=== PATIENT | female | born 1950 | race Caucasian/White ===

== ENCOUNTER 2017-04-18 09:13 | Emergency (ER) | payer MEDICARE, BC ==
--- NOTE | 2017-04-18 09:43 | EDM.PDOC ---
ED HPI GENERAL MEDICAL PROBLEM - General Chief Complaint: Respiratory Problem Stated Complaint: [id number] SOB Time Seen by Provider: 04/18/17 09:43 Source of Information: Reports: Patient, RN, RN Notes Reviewed History Limitations: Reports: No Limitations - History of Present Illness INITIAL COMMENTS - FREE TEXT/NARRATIVE: Patient arrives by POV. Complains of a cough for a week and half. Was seen in the clinic and treated with a ZPAK which she completed and has not improved. Denies fever or chills. Complains of shortness of breath particularly with activity. Cough is dry. Patient feels that there is some wheezing. Location: Reports: Chest Quality: Reports: Ache Severity: Moderate Improves with: Reports: None Worsens with: Reports: None Associated Symptoms: Reports: No Other Symptoms - Related Data Allergies Allergy/AdvReac Type Severity Reaction Status Date / Time levofloxacin [From Levaquin] AdvReac psoriasis Verified 04/18/17 09:41 flare Home Meds: Home Meds Doxycycline [Vibramycin] 1 tab PO BID 04/18/17 [History] Levothyroxine [Synthroid] 1 tab PO DAILY 04/18/17 [History] Simvastatin [Zocor] 1 tab PO BEDTIME 04/18/17 [History] Social & Family History - Family History Family Medical History: Noncontributory ED ROS GENERAL - Review of Systems Review Of Systems: ROS reveals no pertinent complaints other than HPI. ED EXAM, GENERAL - Physical Exam Exam: See Below Exam Limited By: No Limitations General Appearance: Alert, WD/WN, No Apparent Distress Eye Exam: Bilateral Eye: Normal Inspection Ears: Normal External Exam, Normal Canal, Hearing Grossly Normal, Normal TMs Nose: Normal Inspection, Normal Mucosa, No Blood Throat/Mouth: Normal Inspection, Normal Lips, Normal Teeth, Normal Gums, Normal Oropharynx, Normal Voice, No Airway Compromise Head: Atraumatic, Normocephalic Neck: Normal Inspection, Supple, Non-Tender, Full Range of Motion Respiratory/Chest: Decreased Breath Sounds (in bilateral bases. Dry cough with course breath sounds with mimld scattereed wheezes. ) Cardiovascular: Normal Peripheral Pulses, Regular Rate, Rhythm, No Edema, No Gallop, No JVD, No Murmur, No Rub GI/Abdominal: Normal Bowel Sounds, Soft, Non-Tender, No Organomegaly, No Distention, No Abnormal Bruit, No Mass Back Exam: Normal Inspection, Full Range of Motion, NT Extremities: Normal Inspection, Normal Range of Motion, Non-Tender, Normal Capillary Refill, No Pedal Edema Neurological: Alert, Oriented, CN II-XII Intact, Normal Cognition, Normal Gait, Normal Reflexes, No Motor/Sensory Deficits Psychiatric: Normal Affect, Normal Mood Skin Exam: Warm, Dry, Intact, Normal Color, No Rash Course - Vital Signs Last Recorded V/S: Last Vital Signs Temp 36.7 C 04/18/17 11:17 Pulse 80 04/18/17 11:17 Resp 20 04/18/17 11:17 BP 129/73 04/18/17 11:17 Pulse Ox 98 04/18/17 11:17 - Orders/Labs/Meds Orders: Active Orders 24 hr Category Date Time Status Peripheral IV Care [RC] . DIRECTED Care 04/18/17 10:34 Active RT Aerosol Therapy [RC] ASDIRECTED Care 04/18/17 10:34 Active RT Post Treatment Assessment [RC] Click to Edit Care 04/18/17 11:49 Active RT Pre-Treatment Assessment [RC] Click to Edit Care 04/18/17 11:49 Active Chest 2V [CR] Stat Exams 04/18/17 10:34 Taken CULTURE BLOOD [BC] Stat Lab 04/18/17 11:06 Received CULTURE BLOOD [BC] Stat Lab 04/18/17 11:23 Received Sodium Chloride 0.9% [Saline Flush] Med 04/18/17 10:33 Active 10 ml FLUSH ASDIRECTED PRN Blood Culture x2 Reflex Set [OM.PC] Stat Oth 04/18/17 10:33 Ordered Peripheral IV Insertion Adult [OM.PC] Stat Oth 04/18/17 10:33 Ordered Medication Orders Sodium Chloride (Saline Flush) 10 ml FLUSH ASDIRECTED PRN PRN Reason: Keep Vein Open Labs: Laboratory Tests 04/18/17 04/18/17 04/18/17 Range/Units 11:06 11:06 11:06 WBC 9.3 (5.0-10.0) 10^3/uL RBC 5.09 (4.2-5.4) 10^6/uL Hgb 15.7 (12.0-16.0) g/dL Hct 47.3 H (37.0-47.0) % MCV 92.9 (80-100) fL MCH 30.8 (27.0-34.0) pg MCHC 33.2 (33.0-35.0) g/dL Plt Count 262 (150-450) 10^3/uL Neut % (Auto) 72.5 (42.2-75.2) % Lymph % (Auto) 17.2 L (20.5-50.1) % [place] % (Auto) 8.3 H (2-8) % Eos % (Auto) 1.7 (1.0-3.0) % Baso % (Auto) 0.3 (0.0-1.0) % Sodium 144 (135-145) mmol/L Potassium 4.0 (3.6-5.0) mmol/L Chloride 104 (101-111) mmol/L Carbon Dioxide 26.0 (21.0-31.0) mmol/L Anion Gap 18.0 BUN 9 (7-18) mg/dL Creatinine 0.8 (0.6-1.3) mg/dL Est Cr Clr Drug Dosing 55.68 mL/min Estimated GFR (MDRD) > 60 BUN/Creatinine Ratio 11.25 Glucose 111 H (74-105) mg/dL Lactic Acid 2.3 H (0.5-2.2) mmol/L Calcium 9.9 (8.4-10.2) mg/dl Total Bilirubin 0.4 (0.2-1.0) mg/dL AST 27 (10-42) IU/L ALT 23 (10-60) IU/L Alkaline Phosphatase 92 (42-121) IU/L Total Protein 8.1 (6.7-8.2) g/dl Albumin 4.2 (3.2-5.5) g/dl Globulin 3.9 Albumin/Globulin Ratio 1.08 Meds: Medications Generic Name Dose Route Start Last Admin Trade Name Freq PRN Reason Stop Dose Admin Sodium Chloride 10 ml 04/18/17 10:33 Saline Flush FLUSH ASDIRECTED PRN Keep Vein Open Discontinued Medications Generic Name Dose Route Start Last Admin Trade Name Freq PRN Reason Stop Dose Admin Albuterol 6.7 gm 04/18/17 11:49 04/18/17 12:03 Proventil Hfa INH 04/18/17 11:50 2 puff ONETIME ONE Administration Albuterol/Ipratropium 3 ml 04/18/17 10:34 04/18/17 10:39 Duoneb 3.0-0.5 Mg/3 Ml NEB 04/18/17 10:35 3 ml ONETIME ONE Administration Benzonatate 200 mg 04/18/17 11:40 04/18/17 12:03 Tessalon Perles PO 04/18/17 11:41 200 mg ONETIME ONE Administration Methylprednisolone Sodium Succinate 125 mg 04/18/17 11:40 Solu-Medrol IVPUSH 04/18/17 11:41 ONETIME ONE Methylprednisolone Sodium Succinate 125 mg 04/18/17 11:52 04/18/17 12:04 Solu-Medrol IM 04/18/17 11:53 125 mg ONETIME ONE Administration - Radiology Interpretation Free Text/Narrative:: Chest x-ray: COPD. See rad report. Departure - Departure Time of Disposition: 12:18 Disposition: Home, Self-Care 01 Condition: Good Clinical Impression: COPD with acute exacerbation - Discharge Information Instructions: Chronic Obstructive Pulmonary Disease Exacerbation, [id number] Forms: ED Department Discharge Additional Instructions: Albuterol inhaler. RX: Prednisone 20mg. RX: Tessalon Perles 200mg. - My Orders Last 24 Hours: My Active Orders 04/18/17 10:33 Sodium Chloride 0.9% [Saline Flush] 10 ml FLUSH ASDIRECTED PRN Blood Culture x2 Reflex Set [OM.PC] Stat Peripheral IV Insertion Adult [OM.PC] Stat 04/18/17 10:34 Peripheral IV Care [RC] . DIRECTED RT Aerosol Therapy [RC] ASDIRECTED Chest 2V [CR] Stat 04/18/17 11:06 CULTURE BLOOD [BC] Stat 04/18/17 11:23 CULTURE BLOOD [BC] Stat 04/18/17 11:49 RT Post Treatment Assessment [RC] Click to Edit RT Pre-Treatment Assessment [RC] Click to Edit - Assessment/Plan Last 24 Hours: My Active Orders 04/18/17 10:33 Sodium Chloride 0.9% [Saline Flush] 10 ml FLUSH ASDIRECTED PRN Blood Culture x2 Reflex Set [OM.PC] Stat Peripheral IV Insertion Adult [OM.PC] Stat 04/18/17 10:34 Peripheral IV Care [RC] . DIRECTED RT Aerosol Therapy [RC] ASDIRECTED Chest 2V [CR] Stat 04/18/17 11:06 CULTURE BLOOD [BC] Stat 04/18/17 11:23 CULTURE BLOOD [BC] Stat 04/18/17 11:49 RT Post Treatment Assessment [RC] Click to Edit RT Pre-Treatment Assessment [RC] Click to Edit
[2017-04-18] MEDS ORDERED: Sodium Chloride 0.9% 10 ML Syringe FLUSH PRN (10:33)
[2017-04-18] MEDS ORDERED: Albuterol/Ipratropium 3.0-0.5 MG/3 ML Neb Soln NEB ONE (10:34)
[2017-04-18 11:18] VITALS: BP 129/73
[2017-04-18 11:30] LABS: CHLORIDE,CL 104 mmol/L (101-111); SODIUM,NA 144 mmol/L (135-145)
[2017-04-18] MEDS ORDERED: Benzonatate 100 MG Cap PO ONE (11:40)
[2017-04-18] MEDS ORDERED: methylPREDNISolone Sodium Succinate 125 MG/2 ML SDV IVPUSH ONE (11:40)
[2017-04-18] MEDS ORDERED: Albuterol 6.7 GM Inhaler INH ONE (11:49)
[2017-04-18] MEDS ORDERED: methylPREDNISolone Sodium Succinate 125 MG/2 ML SDV IM ONE (11:52)
== END 2017-04-18 12:33 | disposition home or self-care (01) ==
LOC: DL.ED 09:13
DX: J44.1 Chronic obstructive pulmonary disease with (acute) exacerbation (principal); Z79.899 Other long term (current) drug therapy; Z88.1 Allergy status to other antibiotic agents
CPT/HCPCS: 36415; 71020; 80053; 83605; 85025; 87040; 96372; 99284; A9270; J2930

== ENCOUNTER 2018-05-13 21:03 | Emergency (ER) | payer MEDICARE, BC ==
[2018-05-13 21:30] VITALS: BP 132/66
--- NOTE | 2018-05-13 22:18 | EDM.PDOC ---
ED HPI GENERAL MEDICAL PROBLEM - General Chief Complaint: Genitourinary Problem Stated Complaint: HAD GALLBLADDER SURG THIS AM, CANT URINATE [id number] Time Seen by Provider: 05/13/18 22:13 Source of Information: Reports: Patient History Limitations: Reports: No Limitations - History of Present Illness INITIAL COMMENTS - FREE TEXT/NARRATIVE: had GB surgery to day and is fine but unable to void for 9 hours now and feels miserable. Bladder Pain Score (Numeric/FACES): 3 - Related Data Allergies Allergy/AdvReac Type Severity Reaction Status Date / Time levofloxacin [From Levaquin] AdvReac psoriasis Verified 04/18/17 09:41 flare Home Meds: Home Meds Levothyroxine [Synthroid] 1 tab PO DAILY 04/18/17 [History] Simvastatin [Zocor] 1 tab PO BEDTIME 04/18/17 [History] Past Medical History Cardiovascular History: Reports: High Cholesterol Respiratory History: Reports: Bronchitis, Recurrent Endocrine/Metabolic History: Reports: Hypothyroidism - Past Surgical History GI Surgical History: Reports: Cholecystectomy Social & Family History - Family History Family Medical History: Noncontributory - Tobacco Use Smoking Status *Q: Current Every Day Smoker Years of Tobacco use: 48 Packs/Tins Daily: 1 - Caffeine Use Caffeine Use: Reports: Coffee - Recreational Drug Use Recreational Drug Use: No ED ROS GENERAL - Review of Systems Review Of Systems: ROS reveals no pertinent complaints other than HPI. ED EXAM, RENAL/ - Physical Exam Exam: See Below Exam Limited By: No Limitations General Appearance: Alert, WD/WN, Mild Distress, Other (discomfort) Ears: Hearing Grossly Normal Throat/Mouth: Normal Voice, No Airway Compromise Head: Atraumatic Neck: Non-Tender, Full Range of Motion Respiratory/Chest: No Respiratory Distress Cardiovascular: Regular Rate, Rhythm GI/Abdominal: Tender, Other (suprapubic). No: Distended, Guarding, Rigid, Rebound Neurological: Alert, Oriented, Normal Cognition, Normal Gait, No Motor/Sensory Deficits Psychiatric: Tearful Skin Exam: Warm, Dry, Normal Color Lymphatic: No Adenopathy Course - Vital Signs Last Recorded V/S: Last Vital Signs Temp 36.6 C 05/13/18 21:20 Pulse 83 05/13/18 21:20 Resp 18 05/13/18 21:20 BP 132/66 09/27/18 21:20 Pulse Ox 96 05/13/18 21:20 - Orders/Labs/Meds Labs: Laboratory Tests 05/13/18 Range/Units 21:18 Urine Color Yellow (YELLOW) Urine Appearance Clear (CLEAR) Urine pH 6.0 (5.0-9.0) Ur Specific [place] 1.015 (1.005-1.030) Urine Protein Negative (NEGATIVE) Urine Glucose (UA) Negative (NEGATIVE) Urine Ketones Negative (NEGATIVE) Urine Occult Blood Trace-intact H (NEGATIVE) Urine Nitrite Negative (NEGATIVE) Urine Bilirubin Negative (NEGATIVE) Urine Urobilinogen 0.2 (0.2-1.0) mg/dL Ur Leukocyte Esterase Negative (NEGATIVE) Urine RBC 0-5 /HPF Urine WBC 0-5 (0-5/HPF) /HPF Ur Epithelial Cells Occasional /HPF Urine Bacteria Few (0-FEW/HPF) /HPF Urine Mucus Few H /LPF - Re-Assessments/Exams Free Text/Narrative Re-Assessment/Exam: 05/13/18 22:16 rsults discussed with pt who is feeling much better s/p sanchez. got ~250ml Departure - Departure Time of Disposition: 22:18 Disposition: Home, Self-Care 01 Condition: Good Clinical Impression: Postoperative urinary retention - Discharge Information Instructions: Acute Urinary Retention, Female, [id number] Additional Instructions: 1) have sanchez remove tomorrow 2) recheck if there is any change or concern
== END 2018-05-13 22:25 | disposition home or self-care (01) ==
LOC: DL.ED 21:03
DX: K91.89 Other postprocedural complications and disorders of digestive system (principal); R33.8 Other retention of urine; F17.210 Nicotine dependence, cigarettes, uncomplicated; E03.9 Hypothyroidism, unspecified; Z88.1 Allergy status to other antibiotic agents; Z90.49 Acquired absence of other specified parts of digestive tract; Z79.899 Other long term (current) drug therapy
CPT/HCPCS: 51702; 51798; 81001; 99283

== ENCOUNTER 2020-03-17 11:28 | Emergency (ER) | payer MEDICARE, BC ==
[2020-03-17 11:42] VITALS: BP 142/72; PULSE 110
[2020-03-17 12:46] LABS: ANION GAP 14.8 mEq/L (7-13); CHLORIDE,CL 103 mmol/L (98-107); SODIUM,NA 141 mmol/L (136-145)
[2020-03-17] MEDS ORDERED: Iopamidol 612 MG/ML 100 ML Bottle IVPUSH ONE (12:52)
--- NOTE | 2020-03-17 13:49 | CT ---
PROCEDURE INFORMATION: Exam: CT Chest With Contrast Exam date and time: 03/17/2020 12:21 PM Age: 69 years old Clinical indication: Other: Abdominal pain h/o aaa; Prior surgery; Surgery date: 6+ months; Surgery type: Gallbladder, appendix per patient TECHNIQUE: Imaging protocol: Computed tomography of the chest with intravenous contrast. Radiation optimization: All CT scans at this facility use at least one of these dose optimization techniques: automated exposure control; mA and/or kV adjustment per patient size (includes targeted exams where dose is matched to clinical indication); or iterative reconstruction. Contrast material: ISOVUE 300; Contrast volume: 100 ml; Contrast route: INTRAVENOUS (IV); COMPARISON: No relevant prior studies available. FINDINGS: Lungs: Lungs are hyperinflated. There is band atelectasis involving the lingula. There are bilateral subpleural blebs present in the lung bases. There is an area of scarring in the right middle lobe. Pleural space: Unremarkable. No pneumothorax. No pleural effusion. Heart: Coronary artery calcifications are present. Aorta: Atherosclerotic calcifications are seen involving the aorta extending up into its branches from the arch. Lymph nodes: Unremarkable. No enlarged lymph nodes. Bones/joints: Discogenic degenerative changes throughout the thoracic spine with mild kyphosis. Soft tissues: Unremarkable. IMPRESSION: 1. Atherosclerotic changes involving the aorta with coronary artery calcifications. 2. Atelectasis and subpleural blebs in the lungs. PROCEDURE INFORMATION: Exam: CT Abdomen And Pelvis With Contrast Exam date and time: 03/17/2020 12:21 PM Age: 69 years old Clinical indication: Other: Abdominal pain h/o aaa; Prior surgery; Surgery date: 6+ months; Surgery type: Gallbladder, appendix per patient TECHNIQUE: Imaging protocol: Computed tomography of the abdomen and pelvis with intravenous contrast. Radiation optimization: All CT scans at this facility use at least one of these dose optimization techniques: automated exposure control; mA and/or kV adjustment per patient size (includes targeted exams where dose is matched to clinical indication); or iterative reconstruction. Contrast material: ISOVUE 300; Contrast volume: 100 ml; Contrast route: INTRAVENOUS (IV); COMPARISON: No relevant prior studies available. FINDINGS: Liver: Normal. No mass. Gallbladder and bile ducts: The common bile duct measures 8 mm in the head of the pancreas. No pancreatic ductal dilatation is identified. Pancreas: See "Gallbladder and bile ducts" finding. Spleen: Normal. No splenomegaly. Adrenals: Left adrenal gland is enlarged but maintains its adrenal form shape. Kidneys and ureters: Normal. No hydronephrosis. Stomach and bowel: Unremarkable. No obstruction. No mucosal thickening. Appendix: No evidence of appendicitis. Intraperitoneal space: Unremarkable. No free air. No significant fluid collection. Vasculature: The aorta demonstrates atherosclerotic changes throughout the abdominal aorta as well with some calcifications at the takeoff the renal arteries and other branches the abdominal aorta. There is dilatation of the infrarenal abdominal aorta which measures 3.3 cm. It is focal and does not extend into the iliac arteries. Lymph nodes: Unremarkable. No enlarged lymph nodes. Bladder: Unremarkable as visualized. Reproductive: Unremarkable as visualized. Bones/joints: Discogenic degenerative changes are seen in the lumbar spine with disc space narrowing and vacuum disc phenomena present at L4-L5 and L5-S1. Soft tissues: Unremarkable. IMPRESSION: Focal 3.3 cm abdominal aortic aneurysm. No free fluid or free air is identified. There is enlargement the left adrenal gland in a pattern suggestive of adrenal hyperplasia.
--- NOTE | 2020-03-17 14:41 | EDM.PDOC ---
Scribed by Claire Cohen 03/17/20 [id number] for Brianna Hall MD ED HPI GENERAL MEDICAL PROBLEM - General Chief Complaint: Abdominal Pain Stated Complaint: STOMACH PAIN Time Seen by Provider: 03/17/20 11:45 Source of Information: Reports: Patient, RN, RN Notes Reviewed History Limitations: Reports: No Limitations - History of Present Illness INITIAL COMMENTS - FREE TEXT/NARRATIVE: Patient presents to ED by POV with abdominal pain. She has a little nausea but no vomiting. She had a hernia repair in the past and it reminds her of that type of pain. She has a history of AAA. She rates her pain as a 7/10. The pain is around the navel and radiates down. Onset: Gradual Duration: Getting Worse Location: Reports: Abdomen Quality: Reports: Ache Severity: Moderate Improves with: Reports: None Worsens with: Reports: None Associated Symptoms: Reports: No Other Symptoms Abdomen Pain Score (Numeric/FACES): 7 - Related Data Allergies Allergy/AdvReac Type Severity Reaction Status Date / Time levofloxacin [From Levaquin] AdvReac psoriasis Verified 03/17/20 11:42 flare Home Meds: Home Meds Levothyroxine [Synthroid] 100 mcg PO DAILY 04/18/17 [History] Simvastatin [Zocor] 40 mg PO BEDTIME 04/18/17 [History] Aspirin 81 mg PO DAILY 10/01/18 [History] Past Medical History - Past Health History Medical/Surgical History: Denies Medical/Surgical History HEENT History: Reports: Impaired Vision Cardiovascular History: Reports: High Cholesterol Respiratory History: Reports: Bronchitis, Recurrent Gastrointestinal History: Reports: Cholelithiasis 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 ED EXAM, GI/ABD - Physical Exam Exam: See Below Exam Limited By: No Limitations General Appearance: Alert, WD/WN, No Apparent Distress Head: Atraumatic, Normocephalic Respiratory/Chest: No Respiratory Distress, Lungs Clear, Normal Breath Sounds, No Accessory Muscle Use, Chest Non-Tender Cardiovascular: Normal Peripheral Pulses, Regular Rate, Rhythm, No Edema, No Gallop, No JVD, No Murmur, No Rub GI/Abdominal Exam: Tender (epigastrium and bilateral lower ). No: Guarding, Rebound, Hernia (Female) Exam: Deferred Rectal (Female) Exam: Deferred Neurological: Alert, Oriented, CN II-XII Intact, Normal Cognition, Normal Gait, Normal Reflexes, No Motor/Sensory Deficits Skin Exam: Other (right inguinal scar) Course - Vital Signs Last Recorded V/S: Last Vital Signs Temp 97.7 F 03/17/20 11:37 Pulse 110 H 03/17/20 11:37 Resp 14 03/17/20 11:37 BP 142/72 H 03/17/20 11:37 Pulse Ox 97 03/17/20 11:37 - Orders/Labs/Meds Labs: Laboratory Tests 03/17/20 03/17/20 Range/Units 12:13 12:13 WBC 9.8 (5.0-10.0) 10^3/uL RBC 4.91 (4.2-5.4) 10^6/uL Hgb 15.1 (12.0-16.0) g/dL Hct 44.7 (37.0-47.0) % MCV 91.0 (80-100) fL MCH 30.8 (27.0-34.0) pg MCHC 33.8 (33.0-35.0) g/dL Plt Count 227 (150-450) 10^3/uL Neut % (Auto) 76.5 H (42.2-75.2) % Lymph % (Auto) 13.9 L (20.5-50.1) % [place] % (Auto) 7.3 (2-8) % Eos % (Auto) 1.8 (1.0-3.0) % Baso % (Auto) 0.5 (0.0-1.0) % Sodium 141 (136-145) mmol/L Potassium 3.8 (3.5-5.1) mmol/L Chloride 103 (98-107) mmol/L Carbon Dioxide 27 (21-32) mmol/L Anion Gap 14.8 H (7-13) mEq/L BUN 14 (7-18) mg/dL Creatinine 0.86 (0.55-1.02) mg/dL Est Cr Clr Drug Dosing 51.81 mL/min Estimated GFR (MDRD) > 60 Glucose 91 (74-99) mg/dL Calcium 9.0 (8.5-10.1) mg/dL Meds: Medications Discontinued Medications Generic Name Dose Route Start Last Admin Trade Name Freq PRN Reason Stop Dose Admin Iopamidol 100 ml 03/17/20 12:52 03/17/20 13:17 Isovue-300 (61%) IVPUSH 03/17/20 12:53 100 ml ONETIME ONE Administration - Radiology Interpretation Free Text/Narrative:: CT chest, abdomen and pelvis: Atherosclerotic changes involving the aorta with coronary artery calcifications. 2. Atelectasis and subpleural blebs in the lungs.Focal 3.3 cm abdominal aortic aneurysm. No free fluid or free air is identified. There is enlargement the left adrenal gland in a pattern suggestive of adrenal hyperplasia. See rad report. Departure - Departure Time of Disposition: 14:40 Disposition: Home, Self-Care 01 Condition: Fair Clinical Impression: Abdominal pain Qualifiers: Abdominal location: periumbilical Qualified Code(s): R10.33 - Periumbilical pain - Discharge Information *PRESCRIPTION DRUG MONITORING PROGRAM REVIEWED*: Not Applicable *COPY OF PRESCRIPTION DRUG MONITORING REPORT IN PATIENT ISRA: Not Applicable Instructions: Abdominal Pain, Adult Forms: ED Department Discharge Additional Instructions: Follow up with primary doctor if pain does not improve or if it worsens. Sepsis Event Note (ED) - Focused Exam Vital Signs: Vital Signs Temp Pulse Resp BP Pulse Ox 03/17/20 11:37 97.7 F 110 H 14 142/72 H 97 I have read and agree with the documentation that has been completed regarding this visit. By signing this record, I attest that the documentation was completed in my physical presence and is an accurate record of the encounter.
== END 2020-03-17 14:45 | disposition home or self-care (01) ==
LOC: DL.ED 11:28
DX: R10.33 Periumbilical pain (principal); R10.13 Epigastric pain; R10.31 Right lower quadrant pain; R10.32 Left lower quadrant pain; E78.00 Pure hypercholesterolemia, unspecified; E03.9 Hypothyroidism, unspecified; Z90.49 Acquired absence of other specified parts of digestive tract; Z79.82 Long term (current) use of aspirin; Z79.899 Other long term (current) drug therapy; Z88.8 Allergy status to other drugs, medicaments and biological substances
CPT/HCPCS: 36415; 71260; 74177; 80048; 85025; 99284; Q9967

== ENCOUNTER 2021-10-07 12:15 | Emergency (ER) | payer MEDICARE, BC ==
[2021-10-07 12:31] VITALS: BP 159/80; PULSE 106
[2021-10-07 13:18] LABS: ANION GAP 13.2 mEq/L (7-13); CHLORIDE,CL 104 mmol/L (98-107); SODIUM,NA 138 mmol/L (136-145)
[2021-10-07] MEDS ORDERED: Iopamidol 755 Mg/ML 100 ML Bottle IVPUSH ONE (14:27)
== END 2021-10-07 17:07 | disposition home or self-care (01) ==
LOC: DL.ED 12:15
DX: J45.909 Unspecified asthma, uncomplicated (principal); E78.00 Pure hypercholesterolemia, unspecified; E03.9 Hypothyroidism, unspecified; Z72.0 Tobacco use; Z88.1 Allergy status to other antibiotic agents; Z79.82 Long term (current) use of aspirin; Z79.899 Other long term (current) drug therapy
CPT/HCPCS: 36415; 71046; 71260; 80053; 83735; 85025; 85379; 99284; Q9967

== ENCOUNTER 2022-01-29 19:32 | Inpatient (IN) | payer MEDICARE, BC ==
[2022-01-29] MEDS ORDERED: Albuterol/Ipratropium 3.0-0.5 MG/3 ML Neb Soln ONE (19:35)
[2022-01-29] MEDS ORDERED: Aspirin 81 MG Tab.Chew PO ONE (19:47)
[2022-01-29] MEDS ORDERED: Furosemide 40 MG/4 ML VIAL IVPUSH ONE (19:47)
[2022-01-29 19:56] LABS: BASE EXCESS VENOUS -0.5 mmol/l ((-2)-(+3)); BICARBONATE,VENOUS 26 mmol/l (19-25); O2 DELIVERY DEVICE NASAL CANNULA; O2 SATURATION VENOUS 85.5 % (60-80); PCO2 VENOUS 49 mmHg (41-51); PH,VENOUS 7.34 (7.31-7.41); PO2 VENOUS 52 mmHg (35-42)
[2022-01-29 20:05] LABS: O2 FLOW RATE 3
[2022-01-29] MEDS ORDERED: LORazepam 2 MG/ML SDV IVPUSH ONE ×2 (20:05→21:06)
[2022-01-29 20:22] LABS: ANION GAP 14.3 mEq/L (7-13); CHLORIDE,CL 106 mmol/L (98-107); SODIUM,NA 144 mmol/L (136-145)
[2022-01-29 20:28] LABS: ESTIMATED GFR 71 mL/min (>=60)
[2022-01-29] MEDS ORDERED: Albuterol 0.083% 2.5 MG/3 ML Neb Soln NEB ONE ×2 (20:40→22:39)
[2022-01-29] MEDS ORDERED: Iopamidol 755 Mg/ML 100 ML Bottle IVPUSH ONE (21:06)
[2022-01-29] MEDS ORDERED: Albuterol/Ipratropium 3.0-0.5 MG/3 ML Neb Soln NEB PRN (23:04)
[2022-01-29] MEDS ORDERED: Zolpidem 5 MG Tab PO PRN (23:04)
[2022-01-29] MEDS ORDERED: Acetaminophen 325 MG Tab PO PRN (23:04)
[2022-01-29] MEDS ORDERED: Polyethylene Glycol 3350 Powder 17 GM Packet PO PRN (23:04)
[2022-01-29] MEDS ORDERED: Docusate Sodium 100 MG Cap PO PRN (23:04)
[2022-01-29] MEDS ORDERED: Bisacodyl 5 MG Tab PO PRN (23:04)
[2022-01-29] MEDS ORDERED: Magnesium Hydroxide 400 MG/5 ML Susp 30 ML Cup PO PRN (23:04)
[2022-01-29] MEDS ORDERED: Acetaminophen/oxyCODONE 325-5 MG Tab PO PRN (23:04)
[2022-01-29] MEDS ORDERED: Ondansetron 4 MG/2 ML SDV IVPUSH PRN (23:04)
[2022-01-29] MEDS ORDERED: Azithromycin 500 MG in Sodium Chloride 0.9% 250 ML IV ONE (23:09)
[2022-01-29] MEDS ORDERED: 50% Dextrose in Water 50 ML Syringe IVPUSH PRN (23:12)
[2022-01-29] MEDS ORDERED: Insulin Lispro 100 Units/ML 3 ML Vial SUBCUT PRN ×2 (23:12→23:18)
[2022-01-29] MEDS ORDERED: Glucagon,Human Recombinant 1 MG Vial IM PRN (23:12)
[2022-01-29] MEDS ORDERED: guaiFENesin/Dextromethorphan 100-10 MG/5 ML Soln 5 ML Cup PO PRN (23:13)
[2022-01-29] MEDS ORDERED: Metoprolol Tartrate 5 MG/5 ML SDV IVPUSH PRN (23:14)
[2022-01-29] MEDS ORDERED: Lactated Ringers 1,000 ML IV SCH (23:15)
[2022-01-29] MEDS ORDERED: Heparin Sodium 5,000 Units/ML Vial IVPUSH ONE (23:16)
[2022-01-29] MEDS ORDERED: hydrALAZINE 20 MG/ML SDV IVPUSH PRN (23:18)
[2022-01-29] MEDS ORDERED: Ziprasidone Mesylate 20 MG Vial IM PRN (23:21)
[2022-01-29] MEDS ORDERED: Heparin Sodium/0.45% NaCl 25,000 UNITS/500 ML BAG IV SCH (23:30)
[2022-01-29] MEDS: Sodium Chloride 0.9% 10 ML Syringe FLUSH PRN ×2 (23:36→23:49)
[2022-01-29] MEDS: Morphine 2 MG/ML SYRINGE IVPUSH PRN (23:36)
[2022-01-29] MEDS: methylPREDNISolone Sodium Succinate 125 MG/2 ML SDV IVPUSH SCH (23:50)
[2022-01-30] MEDS ORDERED: cefTRIAXone 1 GM in Sodium Chloride 0.9% 50 ML IV SCH ×2
[2022-01-30] MEDS ORDERED: Calcium Carbonate 500 MG Tab.Chew PO PRN (00:35)
[2022-01-30] MEDS ORDERED: Famotidine 20 MG/2 ML SDV IVPUSH ONE (00:36)
[2022-01-30] MEDS ORDERED: Morphine 2 MG/ML SYRINGE IVPUSH ONE (00:50)
[2022-01-30] MEDS: Sodium Chloride 0.9% 10 ML Syringe FLUSH PRN (01:01)
[2022-01-30 01:20] LABS: O2 DELIVERY DEVICE OM
[2022-01-30 01:34] LABS: O2 SATURATION ARTERIAL 96 % (95-100); PCO2 ARTERIAL 53 mmHg (35-45); PO2 ARTERIAL 89 mmHg (70-100)
[2022-01-30 01:35] LABS: ALLEN TEST pos; BASE EXCESS ARTERIAL -6 mmol/L ((-2)-(+3)); O2 FLOW RATE 2
[2022-01-30] MEDS: methylPREDNISolone Sodium Succinate 125 MG/2 ML SDV IVPUSH SCH (05:47)
[2022-01-30] MEDS ORDERED: Levothyroxine 125 MCG Tab PO SCH (06:00)
[2022-01-30 06:25] VITALS: PULSE 88
[2022-01-30 06:41] LABS: ANION GAP 10.6 mEq/L (7-13)
[2022-01-30] MEDS ORDERED: Formoterol/Mometasone 200-5 MCG 8.8 GM Inhaler IH SCH (07:00)
[2022-01-30] MEDS ORDERED: Heparin Sodium 5,000 Units/ML Vial IVPUSH ONE (07:05)
[2022-01-30] MEDS ORDERED: Aspirin 81 MG Tab.Chew PO SCH (08:00)
[2022-01-30] MEDS: Morphine 2 MG/ML SYRINGE IVPUSH PRN ×2 (08:34→09:47)
[2022-01-30 08:46] VITALS: BP 110/71
[2022-01-30] MEDS ORDERED: Nicotine 21 MG/24 Hr Patch TRDERM SCH (09:00)
[2022-01-30] MEDS ORDERED: Saccharomyces Boulardii (Probiotic) 250 MG Cap PO SCH (09:00)
[2022-01-30] MEDS ORDERED: Famotidine 20 MG Tab PO SCH (09:00)
[2022-01-30] MEDS ORDERED: Azithromycin 500 MG in Sodium Chloride 0.9% 250 ML IV SCH (09:00)
[2022-01-30] MEDS ORDERED: Water For Injection, Sterile 20 ML ONE (09:36)
[2022-01-30] MEDS ORDERED: Simvastatin 40 MG Tab PO SCH (21:00)
== END 2022-01-30 10:30 | DRG 871 ==
LOC: DL.ED 19:32 → DL.MS 22:49
PROVIDERS: ADMIT Internal Medicine; ATTEND Internal Medicine
PROC: 5A09457 Assistance with Respiratory Ventilation, 24-96 Consecutive Hours, Continuous Positive Airway Pressure (ICD-10-PCS; principal; 2022-01-29)
PROC: 3E03329 Introduction of Other Anti-infective into Peripheral Vein, Percutaneous Approach (ICD-10-PCS; 2022-01-29)
DX: A41.9 Sepsis, unspecified organism (principal); J96.01 Acute respiratory failure with hypoxia; R06.03 Acute respiratory distress; I21.4 Non-ST elevation (NSTEMI) myocardial infarction; J44.0 Chronic obstructive pulmonary disease with (acute) lower respiratory infection; J44.1 Chronic obstructive pulmonary disease with (acute) exacerbation; E87.2 Acidosis; I10 Essential (primary) hypertension; E78.5 Hyperlipidemia, unspecified; I71.4 Abdominal aortic aneurysm, without rupture; K40.90 Unilateral inguinal hernia, without obstruction or gangrene, not specified as recurrent; M16.0 Bilateral primary osteoarthritis of hip; E27.8 Other specified disorders of adrenal gland; H54.7 Unspecified visual loss; E03.9 Hypothyroidism, unspecified; F17.210 Nicotine dependence, cigarettes, uncomplicated; E78.00 Pure hypercholesterolemia, unspecified; Z90.49 Acquired absence of other specified parts of digestive tract; J40 Bronchitis, not specified as acute or chronic; R79.1 Abnormal coagulation profile; R73.9 Hyperglycemia, unspecified; T68.XXXA Hypothermia, initial encounter; Z98.890 Other specified postprocedural states; Z79.82 Long term (current) use of aspirin; Z79.890 Hormone replacement therapy; Z79.899 Other long term (current) drug therapy; Z88.1 Allergy status to other antibiotic agents; Z20.822 Contact with and (suspected) exposure to COVID-19
CPT/HCPCS: 36415; 36600; 51702; 71045; 71260; 80048; 80053; 80061; 82150; 82803; 82947; 83605; 83690; 83735; 83880; 84484; 85025; 85379; 85610; 85730; 86140; 87040; 93005; 96374; 96375; 96376; 99285-25; A9270-GY; J0456; J0696; J1644; J1940; J2060; J2270; J2930; J3475; J3486; J3490; J7050; J7120; J7613-GY; J7620-GY; Q9967; U0002